=== PATIENT | male | born 1975 | race Caucasian/White ===

== ENCOUNTER 2020-02-28 20:08 | Emergency (ER) | payer OTHER ==
[~2020-02-28 20:08] MED LIST: DELSYM30 MG/5 ML PO; EXPECTORANT200 MG PO; FLONASE 0.05% N16 GM; NORCO 5-325 TA1 EACH PO; PREDNISONE 50 M50 MG PO
[2020-02-28 20:58] LABS: HEMOGLOBIN 13.5 gm/dl (14.0-17.5); RED BLOOD COUNT 4.58 M/UL (4.20-5.50); WHITE BLOOD COUNT 14.8 K/UL (4.5-11.0)
[2020-02-28 21:17] LABS: BUN/CREATININE RATIO 22 (0-10)
[2020-02-28] MEDS ORDERED: ASPIRIN CHEWABL81 MG PO (22:19)
== END 2020-02-29 12:40 | disposition other institution (70) ==
LOC: ER1 20:08
PROVIDERS: Family Medicine
DX: U07.1 COVID-19 (principal); R07.9 Chest pain, unspecified; M25.569 Pain in unspecified knee; J45.909 Unspecified asthma, uncomplicated; F17.200 Nicotine dependence, unspecified, uncomplicated
CPT/HCPCS: 71045; 73562; 80053; 82550; 82553; 83874; 84484; 85025; 93005; 99285; U0002

== ENCOUNTER 2020-03-07 13:27 | Emergency (ER) | payer OTHER ==
[~2020-03-07 13:27] MED LIST changes: +ASPIRIN CHEWABL81 MG PO
== END 2020-03-07 17:00 | disposition left against medical advice (07) ==
LOC: ER1 13:27
DX: M25.561 Pain in right knee (principal); J02.9 Acute pharyngitis, unspecified; R09.81 Nasal congestion; Z53.21 Procedure and treatment not carried out due to patient leaving prior to being seen by health care provider

== ENCOUNTER 2021-07-29 00:23 | Emergency (ER) | payer OTHER | END 2021-07-29 03:45 | disposition home or self-care (01) | LOC: ER1 00:23 | DX: S00.93XA Contusion of unspecified part of head, initial encounter (principal); F17.200 Nicotine dependence, unspecified, uncomplicated; Z23 Encounter for immunization; J45.909 Unspecified asthma, uncomplicated; W22.8XXA Striking against or struck by other objects, initial encounter | CPT/HCPCS: 12001; 90471; 90715; 99283 ==